=== PATIENT | female | born 1995 | race Caucasian/White ===

== ENCOUNTER 2016-08-01 18:07 | Emergency (ER) | payer MEDICAID ==
[2016-08-01] MEDS ORDERED: Ondansetron 4 MG/2 ML SDV IVPUSH ONE (18:45)
[2016-08-01] MEDS ORDERED: Ketorolac 30 MG/ML SDV IVPUSH ONE ×2 (18:49→21:06)
[2016-08-01] MEDS ORDERED: Sodium Chloride 0.9% 1,000 ML IV ONE (18:52)
--- NOTE | 2016-08-01 18:58 | EDM.PDOC ---
<Mandi Zarate - Last Filed: 08/01/16 19:16> ED HPI GI/ABDOMINAL - General Chief Complaint: Abdominal Pain Stated Complaint: BAD GALLBLADDER/TROUBLE BREATHING Time Seen by Provider: 08/01/16 18:35 Source of Information: Reports: Patient History Limitations: Reports: No limitations - History of Present Illness INITIAL COMMENTS - FREE TEXT/NARRATIVE: Patient is a 21 year old female that presents to ED with complaints of right mid back pain that radiates to the front RUQ that started 3 days ago. Voices pain as 10/10 and describes it as a constant throbbing pain. Patient states "i have had this before its my gallbladder, it has sludge in it". Voices heartburn and nausea with meals and one episode of emesis this morning when she ate some eggs. Voices chills denies fever. Patient tried OTC antacids without relief of heartburn symptoms. Symptom Onset Date: 07/29/16 Timing/Duration: Reports: Day(s): (3 days) Location: flank (right flank pain) Quality: Reports: throbbing (constant throbbing) Severity: severe (10/10) Worsens with: Reports: lying down, sitting up - Related Data Allergies/ADRs: Allergies Allergy/AdvReac Type Severity Reaction Status Date / Time morphine Allergy Itching Verified 08/01/16 18:18 Home Meds: Home Meds medroxyPROGESTERone Acetate [Depo-Provera] 150 mg IM ASDIRECTED 09/25/15 [ History] Past Medical History - Past Health History Medical/Surgical History: Denies Medical/Surgical History HEENT History: Reports: None Cardiovascular History: Reports: Blood clots/VTE/DVT Respiratory History: Reports: None Gastrointestinal History: Reports: Cholelithiasis Other Gastrointestinal History: gall bladder problem Genitourinary History: Reports: None 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: Musculoskeletal History: Reports: None, Fracture Other Musculoskeletal History: Fracture in R humerus on 09/25/15 with ORIF Neurological History: Reports: None Psychiatric History: Reports: Anxiety Endocrine/Metabolic History: Reports: Diabetes, type II Other Endocrine/Metabolic History: borderline not taking any meds for it Hematologic History: Reports: None Immunologic History: Reports: None Oncologic (Cancer) History: Reports: None Dermatologic History: Reports: None - Infectious Disease History Infectious Disease History: Reports: None - Past Surgical History Head Surgeries/Procedures: Reports: None Cardiovascular Surgical History: Reports: None Respiratory Surgical History: Reports: None GI Surgical History: Reports: None Female Surgical History: Reports: None Musculoskeletal Surgical History: Reports: None Dermatological Surgical History: Reports: None Social & Family History - Family History Family Medical History: Noncontributory - Tobacco Use Smoking Status *Q: Never Smoker Second Hand Smoke Exposure: No - Caffeine Use Caffeine Use: Reports: None - Alcohol Use Days Per Week of Alcohol Use: 0 - Recreational Drug Use Recreational Drug Use: No ED ROS GENERAL - Review of Systems Review Of Systems: ROS reveals no pertinent complaints other than HPI. ED EXAM, GI/ABD - Physical Exam Exam: See Below Exam Limited By: No limitations General Appearance: alert, WD/WN, no apparent distress Ears: normal external exam Nose: normal inspection Throat/Mouth: Normal inspection Head: atraumatic, normocephalic Neck: normal inspection Respiratory/Chest: no respiratory distress, lungs clear, normal breath sounds, no accessory muscle use, chest non-tender Cardiovascular: regular rate, rhythm GI/Abdominal: normal bowel sounds, soft, non tender (Female) Exam: Deferred Rectal (Female) Exam: Deferred Back Exam: normal inspection Extremities: normal inspection Neurological: alert, oriented Psychiatric: normal affect, normal mood Skin Exam: Warm, Dry, Intact, Normal color, No rash Lymphatic: no adenopathy Course - Vital Signs Last Recorded V/S: Last Vital Signs Temp 36.4 C 08/01/16 18:18 Pulse 63 08/01/16 18:18 Resp 18 08/01/16 18:18 BP 150/66 H 08/01/16 18:18 Pulse Ox 99 08/01/16 18:18 - Orders/Labs/Meds Orders: Active Orders 24 hr Category Date Time Status UA W/MICROSCOPIC [URIN] Stat Lab 08/01/16 19:55 Received Labs: Laboratory Tests 08/01/16 08/01/16 08/01/16 Range/Units 19:14 19:14 19:55 WBC 7.98 (4.0-11.0) K/uL RBC 4.68 (4.30-5.90) M/uL Hgb 12.3 (12.0-16.0) g/dL Hct 39.0 (36.0-46.0) % MCV 83.3 (80.0-98.0) fL MCH 26.3 L (27.0-32.0) pg MCHC 31.5 (31.0-37.0) g/dL RDW Std Deviation 43.6 (28.0-62.0) fl RDW Coeff of Jayy 15 (11.0-15.0) % Plt Count 277 (150-400) K/uL MPV 9.60 (7.40-12.00) fL Neut % (Auto) 71.9 (48.0-80.0) % Lymph % (Auto) 19.4 (16.0-40.0) % [place] % (Auto) 7.5 (0.0-15.0) % Eos % (Auto) 0.8 (0.0-7.0) % Baso % (Auto) 0.4 (0.0-1.5) % Neut # 5.7 (1.4-5.7) K/uL Lymph # 1.6 (0.6-2.4) K/uL [place] # 0.6 (0.0-0.8) K/uL Eos # 0.1 (0.0-0.7) K/uL Baso # 0.0 (0.0-0.1) K/uL Nucleated RBC % 0.0 /100WBC Nucleated RBCs # 0 K/uL Sodium 141 (136-146) mmol/L Potassium 5.1 (3.5-5.1) mmol/L Chloride 110 (98-110) mmol/L Carbon Dioxide 22 (21-31) mmol/L BUN 11 (6.0-23.0) mg/dL Creatinine 0.8 (0.6-1.5) mg/dL Est Cr Clr Drug Dosing 105.01 mL/min Estimated GFR (MDRD) > 60.0 ml/min Glucose 109 (60-110) mg/dL Calcium 9.4 (8.8-10.8) mg/dL Total Bilirubin 0.4 (0.1-1.5) mg/dL AST 60 H (5-40) IU/L ALT 40 (8-54) IU/L Alkaline Phosphatase 101 (40-150) Total Protein 7.9 (6.0-8.0) g/dL Albumin 3.9 (3.5-5.0) g/dL Globulin 4.0 H (2.0-3.5) g/dL Albumin/Globulin Ratio 1.0 L (1.3-2.8) Amylase 37 (10-90) U/L Lipase 26 (7-80) U/L Urine HCG, Qual NEGATIVE (NEGATIVE) Meds: Medications Discontinued Medications Generic Name Dose Route Start Last Admin Trade Name Freq PRN Reason Stop Dose Admin Sodium Chloride 1,000 mls @ 999 mls/hr 08/01/16 18:52 08/01/16 19:03 Normal Saline IV 08/01/16 19:52 999 mls/hr .Bolus ONE Administration Ketorolac Tromethamine 30 mg 08/01/16 18:49 08/01/16 19:04 Toradol IVPUSH 08/01/16 18:50 30 mg ONETIME ONE Administration Ondansetron HCl 4 mg 08/01/16 18:45 08/01/16 19:04 Zofran IVPUSH 08/01/16 18:46 4 mg ONETIME ONE Administration Departure - Departure Disposition: Home, Self-Care 01 Clinical Impression: Abdominal pain, Biliary colic Cholelithiasis Qualifiers: Cholelithiasis location: gallbladder Cholecystitis presence: without cholecystitis Biliary obstruction: without biliary obstruction Qualified Code(s) : K80.20 - Calculus of gallbladder without cholecystitis without obstruction Forms: ED Department Discharge Additional Instructions: The following information is given to patients seen in the emergency department who are being discharged to home. This information is to outline your options for follow-up care. We provide all patients seen in our emergency department with a follow-up referral. The need for follow-up, as well as the timing and circumstances, are variable depending upon the specifics of your emergency department visit. If you don't have a primary care physician on staff, we will provide you with a referral. We always advise you to contact your personal physician following an emergency department visit to inform them of the circumstance of the visit and for follow-up with them and/or the need for any referrals to a consulting specialist. The emergency department will also refer you to a specialist when appropriate. This referral assures that you have the opportunity for followup care with a specialist. All of these measure are taken in an effort to provide you with optimal care, which includes your followup. Under all circumstances we always encourage you to contact your private physician who remains a resource for coordinating your care. When calling for followup care, please make the office aware that this follow-up is from your recent emergency room visit. If for any reason you are refused follow-up, please contact the [facility] emergency department at and asked to speak to the emergency department charge nurse. [facility] - General Surgery Professional Building [address] [place] [address], [address] [place] [address] Zofran as prescribed followup Gen. surgery/private medical doctor 24-48 hours as discussed return as needed as discussed diet as discussed <Bola Vizcarra - Last Filed: 08/01/16 20:38> Course - Vital Signs Text/Narrative:: Patient with resolution of her nausea and vomiting he became markedly improved lengthy discussion regarding followup with general surgery she states prior appointments have been rescheduled for her general surgeon she does have scheduled plan with Dr. Blevins Departure - Departure Time of Disposition: 20:37 Condition: good
[2016-08-01 19:44] LABS: CHLORIDE,CL 110 mmol/L (98-110); SODIUM,NA 141 mmol/L (136-146)
[2016-08-01 21:31] VITALS: BP 130/70
== END 2016-08-01 21:25 | disposition home or self-care (01) ==
LOC: MW.ED 18:07
DX: K80.50 Calculus of bile duct without cholangitis or cholecystitis without obstruction (principal); E11.9 Type 2 diabetes mellitus without complications; Z88.5 Allergy status to narcotic agent; Z86.718 Personal history of other venous thrombosis and embolism
CPT/HCPCS: 36415; 80053; 81001; 81025; 82150; 83690; 85025; 96361; 96374; 96375; 96376; 99284; J1885; J2405; J7040

== ENCOUNTER 2016-09-11 06:31 | Day surgery (SDC) | payer SELFPAY ==
[~2016-09-11 06:31] MED LIST: Lactated Ringers 1,000 ML IV SCH; cefOXitin 2 GM in Premix Bag 1 BAG IV ONE
[2016-09-11] MEDS ORDERED: Midazolam 1 MG/ML 2 ML SDV ONE (06:50)
[2016-09-11] MEDS ORDERED: fentaNYL 250 MCG/5 ML SDV ONE (06:50)
[2016-09-11] MEDS ORDERED: Propofol 200 MG/20 ML SDV ONE (06:50)
[2016-09-11] MEDS ORDERED: Rocuronium 10 MG/ML 10 ML Syringe ONE (06:52)
[2016-09-11] MEDS ORDERED: Dexamethasone 4 MG/ML 5 ML MDV ONE (06:52)
[2016-09-11] MEDS ORDERED: Ondansetron 4 MG/2 ML SDV ONE (06:52)
[2016-09-11] MEDS ORDERED: Succinylcholine/Normal Saline 200 MG/10 ML Syringe ONE (06:52)
[2016-09-11] MEDS ORDERED: Neostigmine Methylsulfate 1 MG/ML 5 ML Syringe ONE (07:10)
[2016-09-11] MEDS ORDERED: fentaNYL 100 MCG/2 ML SDV IVPUSH PRN (07:15)
[2016-09-11] MEDS ORDERED: Bupivacaine 0.5% 10 ML SDV ONE (07:24)
[2016-09-11] MEDS ORDERED: ceFAZolin 1 GM Vial ONE (07:24)
--- NOTE | 2016-09-11 07:31 | PCM.PREANE ---
Preanesthetic Assessment - Anesthesia/Transfusion/Family Hx Anesthesia History: Prior Anesthesia Without Reaction Transfusion History: No Prior Transfusion(s) Intubation History: Unknown - Review of Systems General: No Symptoms, Other (morbid obesity) Pulmonary: No Symptoms Cardiovascular: No Symptoms Gastrointestinal: Abdominal pain (RUQ - surgical zone), Other (GERD) Neurological: No Symptoms Other: Reports: Diabetes (diet controlled, fbs 107), Anxiety - Physical Assessment O2 Sat by Pulse Oximetry: 97 Respiratory Rate: 16 Vital Signs: Last Vital Signs Temp 97.7 F 09/11/16 06:55 Pulse 78 09/11/16 06:55 Resp 16 09/11/16 06:55 BP Pulse Ox 97 09/11/16 06:55 Height: 5 ft 6 in Weight: 320 lb ASA Class: 3 Mental Status: Alert & Oriented x3 Airway Class: Mallampati = 3 Dentition: Reports: Normal Dentition (plaque on frontal teeth) Thyro-Mental Finger Breadths: 3 Mouth Opening Finger Breadths: 3 ROM/Head Extension: Full Lungs: Clear to auscultation, Normal respiratory effort Cardiovascular: Regular Rate, Regular Rhythm, No Murmurs - Lab Values: Laboratory Last Values Urine HCG, Qual NEGATIVE (NEGATIVE) 09/11/16 06:32 - Allergies Allergies/Adverse Reactions: Allergies Allergy/AdvReac Type Severity Reaction Status Date / Time morphine Allergy Itching Verified 08/01/16 18:18 - Blood Blood Available: No Product(s) Available: None - Anesthesia Plan Pre-Op Medication Ordered: None - Acknowledgements Anesthesia Type Planned: General Anesthesia (OETT) Pt an Appropriate Candidate for the Planned Anesthesia: Yes Alternatives and Risks of Anesthesia Discussed w Pt/Guardian: Yes Pt/Guardian Understands and Agrees with Anesthesia Plan: Yes PreAnesthesia Questionnaire - Past Health History Medical/Surgical History: Denies Medical/Surgical History HEENT History: Reports: None Cardiovascular History: Reports: Blood clots/VTE/DVT Other Cardiovascular History: DVT x2 to left leg 2 yrs ago following vaginal delivery Respiratory History: Reports: None Gastrointestinal History: Reports: Cholelithiasis, GERD Genitourinary History: Reports: None 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 History: Reports: Fracture Other Musculoskeletal History: Fracture in R humerus on 09/25/15 with ORIF Neurological History: Reports: None Psychiatric History: Reports: Anxiety Endocrine/Metabolic History: Reports: Diabetes, type II, Obesity/BMI 30+ Other Endocrine/Metabolic History: borderline not taking any meds, diet controlled Hematologic History: Reports: None Immunologic History: Reports: None Oncologic (Cancer) History: Reports: None Dermatologic History: Reports: None - Infectious Disease History Infectious Disease History: Reports: None - Past Surgical History Head Surgeries/Procedures: Reports: None Cardiovascular Surgical History: Reports: None Respiratory Surgical History: Reports: None GI Surgical History: Reports: None Female Surgical History: Reports: None Musculoskeletal Surgical History: Reports: ORIF Dermatological Surgical History: Reports: None - SUBSTANCE USE Smoking Status *Q: Never Smoker Second Hand Smoke Exposure: No Days Per Week of Alcohol Use: 0 Recreational Drug Use History: No - HOME MEDS Home Medications: Home Meds medroxyPROGESTERone Acetate [Depo-Provera] 150 mg IM ASDIRECTED 09/25/15 [ History] Acetaminophen [Tylenol Extra Strength] 2 tab PO ASDIRECTED PRN 09/09/16 [History ] - CURRENT (IN HOUSE) MEDS Current Meds: Current Medications Fentanyl (Sublimaze) 50 mcg IVPUSH Q5M PRN PRN Reason: Pain (moderate 4-6) Stop: 09/11/16 13:00 Lactated Ringer's (Ringers, Lactated) 1,000 mls @ 125 mls/hr IV ASDIRECTED CHE Discontinued Medications Dexamethasone (Dexamethasone) Confirm Administered Dose 20 mg .ROUTE .STK-MED ONE Stop: 09/11/16 06:53 Fentanyl (Sublimaze) Confirm Administered Dose 250 mcg .ROUTE .STK-MED ONE Stop: 09/11/16 06:51 Glycopyrrolate () Confirm Administered Dose 1 mg .ROUTE .STK-MED ONE Stop: 09/11/16 07:11 Cefoxitin Sodium 2 gm/ Premix 50 mls @ 100 mls/hr IV ONETIME ONE Stop: 09/11/16 06:29 Cefoxitin Sodium (Mefoxin In Dextrose,Iso-Osm 2 Gm/50 Ml) Confirm Administered Dose 50 mls @ as directed .ROUTE .STK-MED ONE Stop: 09/11/16 07:15 Lidocaine HCl (Xylocaine-Mpf 1%) Confirm Administered Dose 5 ml .ROUTE .STK-MED ONE Stop: 09/11/16 06:53 Midazolam HCl (Versed 1 Mg/Ml) Confirm Administered Dose 2 mg .ROUTE .STK-MED ONE Stop: 09/11/16 06:51 Neostigmine Methylsulfate (Neostigmine) Confirm Administered Dose 5 mg .ROUTE .STK-MED ONE Stop: 09/11/16 07:11 Ondansetron HCl (Zofran) Confirm Administered Dose 4 mg .ROUTE .STK-MED ONE Stop: 09/11/16 06:53 Propofol (Diprivan 20 Ml) Confirm Administered Dose 200 mg .ROUTE .STK-MED ONE Stop: 09/11/16 06:51 Rocuronium [place] (Zemuron) Confirm Administered Dose 100 mg .ROUTE .STK-MED ONE Stop: 09/11/16 06:53 Succinylcholine Chloride (Succinylcholine In Ns Pf) Confirm Administered Dose 200 mg .ROUTE .STK-MED ONE Stop: 09/11/16 06:53
[2016-09-11] MEDS ORDERED: Mineral Oil/Petrolatum Ophth Oint 3.5 GM Tube ONE (07:32)
[2016-09-11] MEDS ORDERED: Scopolamine 1.5 MG Transdermal Patch TRDERM PRN (07:35)
[2016-09-11] MEDS ORDERED: HYDROmorphone 2 MG/ML Syringe ONE (09:44)
[2016-09-11] MEDS ORDERED: Ketorolac 30 MG/ML SDV ONE (09:47)
[2016-09-11] MEDS ORDERED: Acetaminophen/HYDROcodone 325-5 MG Tab PO PRN (10:03)
[2016-09-11] MEDS ORDERED: Ondansetron 4 MG/2 ML SDV IVPUSH PRN (10:03)
[2016-09-11] MEDS ORDERED: HYDROmorphone 2 MG/ML Syringe IVPUSH PRN (10:04)
--- NOTE | 2016-09-11 10:08 | PCM.OPNOTE ---
- General Post-Op/Procedure Note Date of Surgery/Procedure: 09/11/16 Operative Procedure(s): Laparoscopic cholecystectomy with removal multiple cystic duct stones Pre Op Diagnosis: Cholelithiasis Post-Op Diagnosis: Cholelithiasis with cholecystitis. Multiple cystic duct stones. Anesthesia Technique: General ET tube (ASA III) Primary Surgeon: Elliot Blevins Fluid Replacement, Intraop: 1,200 Output, Urine Amount: 100 EBL in mLs: 30 Condition: Good Free Text/Narrative:: Dictation [id number]
[2016-09-11] MEDS ORDERED: Lactated Ringers 1,000 ML IV SCH (10:15)
--- NOTE | 2016-09-11 10:56 | PCM.POSTAN ---
POST ANESTHESIA ASSESSMENT - MENTAL STATUS Mental Status: alert, oriented - RESPIRATORY Respiratory Status: respiratory rate WNL, airway patent - CARDIOVASCULAR CV Status: pulse rate WNL, blood pressure stable - GASTROINTESTINAL GI Status: no symptoms - POST OP HYDRATION Hydration Status: adequate & stable
--- NOTE | 2016-09-11 12:02 | OR ---
SURGEON: lEliot Blevins M.D. DATE OF PROCEDURE: 09/11/2016 OPERATION PERFORMED: Laparoscopic cholecystectomy. ANESTHESIA: General endotracheal. ASA CLASSIFICATION: III. PREOPERATIVE DIAGNOSIS: Symptomatic cholelithiasis. POSTOPERATIVE DIAGNOSIS: Cholelithiasis with multiple cystic duct stones. ESTIMATED BLOOD LOSS: 30 mL. INTRAOPERATIVE FLUID REPLACEMENT: 1200 mL of crystalloid. INTRAOPERATIVE URINE OUTPUT: 100 mL. DESCRIPTION OF PROCEDURE: The patient was taken to the operating room and placed on the operating table in the supine position. Thigh-high TEDs have been placed. However, these were all down and acted more as the tourniquets so they were removed. Sequential compression boots were used for DVT prophylaxis. Following satisfactory attainment of general endotracheal anesthesia, a Glass catheter was placed in the patient's urinary bladder. The abdomen was prepped with DuraPrep solution and sterile drapes were applied. The skin just below the umbilicus was infiltrated with 0.5% Marcaine solution. The skin incision was made and hemostasis was obtained with the use of electrocautery. The bariatric Veress needle was introduced into the peritoneal cavity. Saline drop test was positive. Carbon dioxide pneumoperitoneum was established with the relief set at 15 cm of water. Once a satisfactory pneumoperitoneum was established, the patient was positioned with her feet down and rolled left and a 5 mm camera and port were placed through the infraumbilical incision. Under camera vision, 12 mm subxiphoid, 5 mm midclavicular, and 5 mm anterior axillary ports were placed. Each incision was preemptively infiltrated with 0.5% Marcaine solution. The gallbladder was grasped and adhesions were taken down. The cholecystohepatic triangle was dissected free obtaining a good critical view of the cystic duct, which demonstrated multiple stones that could be seen and palpated with the [place] dissector. Attempt was made to milk the stones back, however, we were not able to do that. Therefore small incision in the cystic duct was made just at the base of the gallbladder and the stones were removed. They were milked backwards with care taken to avoid injury to the common duct, cystic duct junction. Once all the stones were removed the cystic duct was still quite thick and required multiple extra clips to satisfactorily transect and ligate this. Unfortunately, some stones were spilled from the gallbladder and these were able to be retrieved. The cystic artery was then identified and hemo- clipped as well before division with the laparoscopic Metzenbaum scissor. The gallbladder was then dissected away from its bed using electrocautery. Small bleeding sites were electrocoagulated. No bile was noted coming from the bed of the gallbladder. Once gallbladder was amputated, this was placed in an Endopouch. The right upper quadrant was irrigated with several 100 mL of 1% Ancef solution. All fluid was aspirated. Avitene and Surgicel were placed into the bed of the gallbladder. The right hemidiaphragm was then irrigated with dilute Marcaine solution. That fluid was left in place. The 12 mm trocar and Endopouch containing gallbladder were removed through the subxiphoid incision. Under camera vision, the 5 mm midclavicular, and anterior axillary ports were removed and finally the infraumbilical camera and port were removed. The wounds were inspected for hemostasis. No other bleeding was noted. The patient was now placed back in the neutral position. The subxiphoid and infraumbilical incisions were closed in 2 layers approximating the subcutaneous tissue with 3-0 Polysorb and the skin with subcuticular 4-0 Monocryl. The midclavicular and anterior axillary incisions were closed with subcuticular 4-0 Monocryl. All incisions were Steri-Stripped and dressed with sterile Tegaderm pads. The patient tolerated the procedure well. Glass catheter was removed prior to emergence from anesthesia. Following emergence from anesthesia and extubation, the patient was taken to recovery room in satisfactory condition. ALEXA GUERRERO /[id number] SWATI
--- NOTE | 2016-09-11 12:42 | PCM48HPAN ---
Post Anesthesia Note - EVALUATION WITHIN 48HRS OF ANESTHETIC Vital Signs in Normal Range: Yes Patient Participated in Evaluation: Yes Respiratory Function Stable: Yes Airway Patent: Yes Cardiovascular Function Stable: Yes Hydration Status Stable: Yes Pain Control Satisfactory: Yes Nausea and Vomiting Control Satisfactory: Yes Mental Status Recovered: Yes
[2016-09-11 14:11] VITALS: BP 114/59
== END 2016-09-11 13:00 | disposition home or self-care (01) ==
LOC: MW.SDS 06:31
PROVIDERS: ATTEND Surgery
PROC: 0FT44ZZ Resection of Gallbladder, Percutaneous Endoscopic Approach (ICD-10-PCS; principal; 2016-09-11)
DX: K80.10 Calculus of gallbladder with chronic cholecystitis without obstruction (principal); R73.03 Prediabetes; E66.01 Morbid (severe) obesity due to excess calories; Z68.43 Body mass index [BMI] 50.0-59.9, adult; Z86.718 Personal history of other venous thrombosis and embolism
CPT/HCPCS: 47562; 81025; A9270; J0690; J1100; J1170; J1885; J2250; J2405; J3010; J7120; 00790; 88304; J2704

== ENCOUNTER 2016-09-17 14:49 | Emergency (ER) | payer SELFPAY ==
--- NOTE | 2016-09-17 16:00 | EDM.PDOC ---
ED HPI Trauma - General Chief Complaint: Lower Extremity Injury/Pain Stated Complaint: POSSIBLE BLOOD CLOT IN LT LEG Time Seen by Provider: 09/17/16 15:20 Source: Reports: Patient History Limitations: Reports: No limitations - History of Present Illness INITIAL COMMENTS - FREE TEXT/NARRATIVE: History of present illness: [21-year-old female presenting with acute onset of left leg pain patient demonstrates a read From her left groin down across her thigh down to her knee. Patient indicates she does have a positive history of DVTs and she subsequently had a gallbladder surgery approximately a week ago. She indicates it is painful and hot and the redness has gotten darker in the last day and a half.] Review of systems: As per history of present illness and below otherwise all systems reviewed and negative. Past medical history: As per history of present illness and as reviewed below otherwise noncontributory. Surgical history: As per history of present illness and as reviewed below otherwise noncontributory. Social history: No reported history of drug or alcohol abuse. Family history: As per history of present illness and as reviewed below otherwise noncontributory. Physical exam: HEENT: Atraumatic, normocephalic, pupils reactive, negative for conjunctival pallor or scleral icterus, mucous membranes moist, throat clear, neck supple, nontender, trachea midline. Lungs: Clear to auscultation, breath sounds equal bilaterally, chest nontender. Heart: S1S2, regular, negative for clicks, rubs, or JVD. Abdomen: Soft, nondistended, nontender. Negative for masses or hepatosplenomegaly. Negative for costovertebral tenderness. Pelvis: Stable nontender. Genitourinary: Deferred. Rectal: Deferred. Extremities: Atraumatic, negative for cords or calf pain. Neurovascular unremarkable. Neuro: Awake, alert, oriented. Cranial nerves II through XII unremarkable. Cerebellum unremarkable. Motor and sensory unremarkable throughout. Exam nonfocal. Skin: 2 cm midline radiating from left femoral region down the top of the patient's thigh going into her knee hardened area easily palpable. Venous Doppler negative UA positive DVT versus cellulitis Diagnostics: [Venous Doppler left lower extremity] Therapeutics: [] Impression: [UTI, cellulitis] Plan: [Antibiotics followup with PCP] Definitive disposition and diagnosis as appropriate pending reevaluation and review of above. Allergies/ADRs: Allergies morphine Allergy (Verified 09/17/16 15:40) Itching Home Medications: Ambulatory Orders medroxyPROGESTERone Acetate [Depo-Provera] 150 mg IM ASDIRECTED 09/25/15 [ Confirmed 09/17/16] Acetaminophen [Tylenol Extra Strength] 2 tab PO ASDIRECTED PRN 09/09/16 [ Confirmed 09/17/16] Nitrofurantoin Monohyd/M-Cryst [Macrobid 100 mg Capsule] 100 mg PO BID #20 capsule 09/17/16 Past Medical History - Past Health History Medical/Surgical History: Denies Medical/Surgical History HEENT History: Reports: None Cardiovascular History: Reports: Blood clots/VTE/DVT Other Cardiovascular History: DVT x2 to left leg 2 yrs ago following vaginal delivery Respiratory History: Reports: None Gastrointestinal History: Reports: Cholelithiasis, GERD Genitourinary History: Reports: None 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: Musculoskeletal History: Reports: Fracture Other Musculoskeletal History: Fracture in R humerus on 09/25/15 with ORIF Neurological History: Reports: None Psychiatric History: Reports: Anxiety Endocrine/Metabolic History: Reports: Diabetes, type II, Obesity/BMI 30+ Other Endocrine/Metabolic History: borderline not taking any meds, diet controlled Hematologic History: Reports: None Immunologic History: Reports: None Oncologic (Cancer) History: Reports: None Dermatologic History: Reports: None - Infectious Disease History Infectious Disease History: Reports: None - Past Surgical History Head Surgeries/Procedures: Reports: None Cardiovascular Surgical History: Reports: None Respiratory Surgical History: Reports: None GI Surgical History: Reports: None Female Surgical History: Reports: None Musculoskeletal Surgical History: Reports: ORIF Dermatological Surgical History: Reports: None Social & Family History - Family History Family Medical History: Noncontributory - Tobacco Use Smoking Status *Q: Never Smoker Second Hand Smoke Exposure: No - Caffeine Use Caffeine Use: Reports: None - Alcohol Use Days Per Week of Alcohol Use: 0 - Recreational Drug Use Recreational Drug Use: No Review of Systems - Review of Systems Review Of Systems: See Below (The history of present illness) Trauma Exam - Physical Exam Exam: See Below (See history of present illness) Course - Vital Signs Last Recorded V/S: Last Vital Signs Temp 36.5 C 09/17/16 15:38 Pulse 92 09/17/16 15:38 Resp 18 09/17/16 15:38 BP 123/79 09/17/16 15:38 Pulse Ox 98 09/17/16 15:38 - Orders/Labs/Meds Orders: Active Orders 24 hr Category Date Time Status Venous Doppler Lwr Ext Lt [US] Stat Exams 09/17/16 15:34 Taken Labs: Laboratory Tests 09/17/16 09/17/16 09/17/16 Range/Units 16:20 17:39 17:39 WBC 8.97 (4.0-11.0) K/uL RBC 4.52 (4.30-5.90) M/uL Hgb 11.7 L (12.0-16.0) g/dL Hct 37.9 (36.0-46.0) % MCV 83.8 (80.0-98.0) fL MCH 25.9 L (27.0-32.0) pg MCHC 30.9 L (31.0-37.0) g/dL RDW Std Deviation 44.5 (28.0-62.0) fl RDW Coeff of Jayy 15 (11.0-15.0) % Plt Count 260 (150-400) K/uL MPV 9.20 (7.40-12.00) fL Neut % (Auto) 71.4 (48.0-80.0) % Lymph % (Auto) 17.9 (16.0-40.0) % [place] % (Auto) 7.5 (0.0-15.0) % Eos % (Auto) 2.8 (0.0-7.0) % Baso % (Auto) 0.4 (0.0-1.5) % Neut # (Auto) 6.4 H (1.4-5.7) K/uL Lymph # (Auto) 1.6 (0.6-2.4) K/uL [place] # (Auto) 0.7 (0.0-0.8) K/uL Eos # (Auto) 0.3 (0.0-0.7) K/uL Baso # (Auto) 0.0 (0.0-0.1) K/uL Nucleated RBC % 0.0 /100WBC Nucleated RBCs # 0 K/uL Sodium 141 (136-146) mmol/L Potassium 4.2 (3.5-5.1) mmol/L Chloride 110 (98-110) mmol/L Carbon Dioxide 24 (21-31) mmol/L BUN 9 (6.0-23.0) mg/dL Creatinine 0.8 (0.6-1.5) mg/dL Est Cr Clr Drug Dosing 109.08 mL/min Estimated GFR (MDRD) > 60.0 ml/min Glucose 96 (60-110) mg/dL Calcium 9.0 (8.8-10.8) mg/dL Total Bilirubin 0.4 (0.1-1.5) mg/dL AST 12 (5-40) IU/L ALT 22 (8-54) IU/L Alkaline Phosphatase 84 (40-150) Total Protein 7.4 (6.0-8.0) g/dL Albumin 4.0 (3.5-5.0) g/dL Globulin 3.4 (2.0-3.5) g/dL Albumin/Globulin Ratio 1.2 L (1.3-2.8) Urine Color YELLOW Urine Appearance SLT CLOUDY Urine pH 5.5 (5.0-8.0) Ur Specific [place] 1.025 (1.001-1.035) Urine Protein NEGATIVE (NEGATIVE) mg/dL Urine Glucose (UA) NEGATIVE (NEGATIVE) mg/dL Urine Ketones NEGATIVE (NEGATIVE) mg/dL Urine Occult Blood LARGE H (NEGATIVE) Urine Nitrite NEGATIVE (NEGATIVE) Urine Bilirubin NEGATIVE (NEGATIVE) Urine Urobilinogen 0.2 (<2.0) EU/dL Ur Leukocyte Esterase TRACE (NEGATIVE) Urine RBC 60-65 (0-2/HPF) Urine WBC 3-5 (0-5/HPF) Ur Epithelial Cells FEW (NONE-FEW) Urine Bacteria FEW (NEGATIVE) Meds: Medications Discontinued Medications Generic Name Dose Route Start Last Admin Trade Name Freq PRN Reason Stop Dose Admin Sodium Chloride 1,000 mls @ 999 mls/hr 09/17/16 16:20 09/17/16 17:33 Normal Saline IV 09/17/16 17:20 Not Given STAT ONE Departure - Departure Time of Disposition: 18:21 Disposition: Home, Self-Care 01 Condition: good Clinical Impression: UTI (urinary tract infection), Cellulitis Prescriptions: Nitrofurantoin Monohyd/M-Cryst [Macrobid 100 mg Capsule] 100 mg PO BID #20 capsule Forms: ED Department Discharge Additional Instructions: The following information is given to patients seen in the emergency department who are being discharged to home. This information is to outline your options for follow-up care. We provide all patients seen in our emergency department with a follow-up referral. The need for follow-up, as well as the timing and circumstances, are variable depending upon the specifics of your emergency department visit. If you don't have a primary care physician on staff, we will provide you with a referral. We always advise you to contact your personal physician following an emergency department visit to inform them of the circumstance of the visit and for follow-up with them and/or the need for any referrals to a consulting specialist. The emergency department will also refer you to a specialist when appropriate. This referral assures that you have the opportunity for follow-up care with a specialist. All of these measure are taken in an effort to provide you with optimal care, which includes your follow-up. Under all circumstances we always encourage you to contact your private physician who remains a resource for coordinating your care. When calling for follow-up care, please make the office aware that this follow-up is from your recent emergency room visit. If for any reason you are refused follow-up, please contact the [facility] Emergency Department at and asked to speak to the emergency department charge nurse. Take medication as directed Followup with PCP 1-2 days Return to ED as needed as discussed - My Orders Last 24 Hours: My Active Orders 09/17/16 15:34 Venous Doppler Lwr Ext Lt [US] Stat - Assessment/Plan Last 24 Hours: My Active Orders 09/17/16 15:34 Venous Doppler Lwr Ext Lt [US] Stat
[2016-09-17] MEDS ORDERED: Sodium Chloride 0.9% 1,000 ML IV ONE (16:20)
[2016-09-17 18:05] LABS: CHLORIDE,CL 110 mmol/L (98-110); SODIUM,NA 141 mmol/L (136-146)
[2016-09-17 18:46] VITALS: BP 132/75
--- NOTE | 2016-09-18 10:32 | US ---
EXAM DATE: 09/17/16 PATIENT'S AGE: 21 Patient: JANEE BLACKWELL Facility: [place], [place] Site . Site : 1995 Study: US Extremity [id number]/20/2017 5:11:17 PM Ordering Physician: Doctor Tamayo Final Report: INDICATION: pain and redness in left leg INDICATION: Left lower extremity pain and swelling TECHNIQUE: Ultrasound venous duplex lower left extremity. Compression venous exam was performed using schmid-scale, color Doppler, and spectral Doppler analysis. COMPARISON: FINDINGS: Sonographic imaging demonstrates the left common femoral, deep femoral, superficial femoral, popliteal, posterior tibial and greater saphenous and the contralateral right common femoral veins to be fully compressible with normal color Doppler blood flow. IMPRESSION: Normal left lower extremity venous ultrasound, no sign of deep venous thrombosis. Dictated by Ned Rashid MD @ 09/17/2016 5:31:41 PM Dictated by: Ned Rashid MD @ 09/17/2016 17:31:52 (Electronic Signature) Report Signed by Proxy and Original Signed Document filed in the Medical Record. MTDD
== END 2016-09-17 18:43 | disposition home or self-care (01) ==
LOC: MW.ED 14:49
DX: L03.116 Cellulitis of left lower limb (principal); N39.0 Urinary tract infection, site not specified; K21.9 Gastro-esophageal reflux disease without esophagitis; F41.9 Anxiety disorder, unspecified; E11.9 Type 2 diabetes mellitus without complications; E66.9 Obesity, unspecified; Z68.30 Body mass index [BMI] 30.0-30.9, adult; Z86.718 Personal history of other venous thrombosis and embolism; Z98.890 Other specified postprocedural states; Z88.5 Allergy status to narcotic agent
CPT/HCPCS: 80053; 81001; 85025; 93971-26-LT; 93971-LT; 99283; 99284-25

== ENCOUNTER 2016-11-23 23:59 | Emergency (ER) | payer SELFPAY ==
--- NOTE | 2016-11-24 00:12 | EDM.PDOC ---
ED HPI GENERAL MEDICAL PROBLEM - General Chief Complaint: Eye Problems Stated Complaint: PT HAS SWOLLEN LT EYE Time Seen by Provider: 11/24/16 00:08 - History of Present Illness INITIAL COMMENTS - FREE TEXT/NARRATIVE: HISTORY AND PHYSICAL: History of present illness: Patient 21-year-old female presents for a concern of a stye she states she had swelling of her lower eyelid and discomfort 2 days Review of systems: As per history of present illness and below otherwise all systems reviewed and negative. Past medical history: As per history of present illness and as reviewed below otherwise noncontributory. Surgical history: As per history of present illness and as reviewed below otherwise noncontributory. Social history: No reported history of drug or alcohol abuse. Family history: As per history of present illness and as reviewed below otherwise noncontributory. Physical exam: HEENT: Atraumatic, normocephalic, pupils reactive, negative for conjunctival pallor or scleral icterus, mucous membranes moist, throat clear, neck supple, nontender, trachea midline. Patient is known to have a hordeolum medial aspect of her left lower lid Lungs: Clear to auscultation, breath sounds equal bilaterally, chest nontender. Heart: S1S2, regular, negative for clicks, rubs, or JVD. Abdomen: Soft, nondistended, nontender. Negative for masses or hepatosplenomegaly. Negative for costovertebral tenderness. Pelvis: Stable nontender. Genitourinary: Deferred. Rectal: Deferred. Extremities: Atraumatic, negative for cords or calf pain. Neurovascular unremarkable. Neuro: Awake, alert, oriented. Cranial nerves II through XII unremarkable. Cerebellum unremarkable. Motor and sensory unremarkable throughout. Exam nonfocal. Diagnostics: None Therapeutics: None Impression: 1 hordeolum Definitive disposition and diagnosis as appropriate pending reevaluation and review of above. left eyelid Pain Score (Numeric/FACES): 3 - Related Data Allergies Allergy/AdvReac Type Severity Reaction Status Date / Time morphine Allergy Itching Verified 11/24/16 00:07 Home Meds: Home Meds medroxyPROGESTERone Acetate [Depo-Provera] 150 mg IM ASDIRECTED 09/25/15 [ History] Acetaminophen [Tylenol Extra Strength] 2 tab PO ASDIRECTED PRN 09/09/16 [History ] Cephalexin [Keflex] 500 mg PO QID #40 capsule 09/17/16 [Rx] Past Medical History - Past Health History Medical/Surgical History: Denies Medical/Surgical History HEENT History: Reports: None Cardiovascular History: Reports: Blood Clots/VTE/DVT Other Cardiovascular History: DVT x2 to left leg 2 yrs ago following vaginal delivery Respiratory History: Reports: None Gastrointestinal History: Reports: Cholelithiasis, GERD Genitourinary History: Reports: None 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: Musculoskeletal History: Reports: Fracture Other Musculoskeletal History: Fracture in R humerus on 09/25/15 with ORIF Neurological History: Reports: None Psychiatric History: Reports: Anxiety Endocrine/Metabolic History: Reports: Diabetes, Type II, Obesity/BMI 30+ Other Endocrine/Metabolic History: borderline not taking any meds, diet controlled Hematologic History: Reports: None Immunologic History: Reports: None Oncologic (Cancer) History: Reports: None Dermatologic History: Reports: None - Infectious Disease History Infectious Disease History: Reports: None - Past Surgical History Head Surgeries/Procedures: Reports: None Cardiovascular Surgical History: Reports: None Respiratory Surgical History: Reports: None GI Surgical History: Reports: None Female Surgical History: Reports: None Musculoskeletal Surgical History: Reports: ORIF Dermatological Surgical History: Reports: None Social & Family History - Family History Family Medical History: Noncontributory - Tobacco Use Smoking Status *Q: Never Smoker Second Hand Smoke Exposure: No - Caffeine Use Caffeine Use: Reports: None - Alcohol Use Days Per Week of Alcohol Use: 0 - Recreational Drug Use Recreational Drug Use: No ED ROS GENERAL - Review of Systems Review Of Systems: ROS reveals no pertinent complaints other than HPI. ED EXAM GENERAL W FULL EYE - Physical Exam Exam: See Below (See dictation) Course - Vital Signs Last Recorded V/S: Last Vital Signs Temp 36.4 C 11/24/16 00:07 Pulse 87 11/24/16 00:07 Resp 20 11/24/16 00:07 BP 129/78 11/24/16 00:07 Pulse Ox 99 11/24/16 00:07 Departure - Departure Time of Disposition: 00:11 Disposition: Home, Self-Care 01 Condition: Good Clinical Impression: Hordeolum externum (stye) - Discharge Information Forms: ED Department Discharge Additional Instructions: The following information is given to patients seen in the emergency department who are being discharged to home. This information is to outline your options for follow-up care. We provide all patients seen in our emergency department with a follow-up referral. The need for follow-up, as well as the timing and circumstances, are variable depending upon the specifics of your emergency department visit. If you don't have a primary care physician on staff, we will provide you with a referral. We always advise you to contact your personal physician following an emergency department visit to inform them of the circumstance of the visit and for follow-up with them and/or the need for any referrals to a consulting specialist. The emergency department will also refer you to a specialist when appropriate. This referral assures that you have the opportunity for followup care with a specialist. All of these measure are taken in an effort to provide you with optimal care, which includes your followup. Under all circumstances we always encourage you to contact your private physician who remains a resource for coordinating your care. When calling for followup care, please make the office aware that this follow-up is from your recent emergency room visit. If for any reason you are refused follow-up, please contact the [facility] emergency department at and asked to speak to the emergency department charge nurse. Erythromycin as prescribed warm compresses follow-up primary medical doctor 1-2 days return as needed as discussed]
[2016-11-24 06:56] VITALS: BP 125/72
== END 2016-11-24 00:26 | disposition home or self-care (01) ==
LOC: MW.ED 23:59
DX: H00.015 Hordeolum externum left lower eyelid (principal); K21.9 Gastro-esophageal reflux disease without esophagitis; E11.9 Type 2 diabetes mellitus without complications; E66.9 Obesity, unspecified; Z88.5 Allergy status to narcotic agent; Z79.899 Other long term (current) drug therapy
CPT/HCPCS: 99282; 99283

== ENCOUNTER 2017-05-15 23:34 | Emergency (ER) | payer SELFPAY ==
[2017-05-15] MEDS ORDERED: Ketorolac 60 MG/2 ML SDV IM ONE (23:50)
--- NOTE | 2017-05-15 23:53 | EDM.PDOC ---
ED HPI GENERAL MEDICAL PROBLEM - General Chief Complaint: Lower Extremity Injury/Pain Stated Complaint: LEFT FOOT PAIN Time Seen by Provider: 05/15/17 23:38 - History of Present Illness INITIAL COMMENTS - FREE TEXT/NARRATIVE: HISTORY AND PHYSICAL: History of present illness: The patient is a 21-year-old female who presents after twisting her left ankle while going down some stairs yesterday at a friend's home. She did fall to the ground but she did not hit her head pass out or black out and has no head neck or back pain and has no other extremity or body complaints. She's had persistent pain at her left ankle since that time been trying not to weight- bear ice and elevate but she has also been alternating with heat. She has used Tylenol only for pain and comes today for evaluation for persistent pain and swelling. She has no proximal leg knee thigh or hip pain and no distal foot heel pain and no neurosensory changes in her leg or foot. Patient says it was "bent to the side ". Patient denies and says she is on the Depo shot Review of systems: As per history of present illness and below otherwise all systems reviewed and negative. Past medical history: As per history of present illness and as reviewed below otherwise noncontributory. Surgical history: As per history of present illness and as reviewed below otherwise noncontributory. Social history: No reported history of drug or alcohol abuse. Family history: As per history of present illness and as reviewed below otherwise noncontributory. Physical exam: Gen.: Well-developed overweight female who is nontoxic and vital signs have been reviewed by me. HEENT: Atraumatic, normocephalic,negative for conjunctival pallor or scleral icterus, mucous membranes moist, throat clear, neck supple, nontender, trachea midline. Lungs: Clear to auscultation, breath sounds equal bilaterally, chest nontender. Heart: S1S2, regular rate and rhythm no overt murmurs Abdomen: Soft, nondistended, nontender. NABS Pelvis: Stable nontender. No lateral hip tenderness on the left Genitourinary: Deferred. Rectal: Deferred. Extremities: Atraumatic with full range of motion of all extremities with the exception of the left ankle. At the lateral left ankle there is diffuse soft tissue swelling without erythema warmth or ecchymosis. There is tenderness in this region but there is no proximal tib-fib tenderness no calf tenderness and no distal foot metatarsal heel toe tenderness or bony deformities. Neurovascular is intact in the left ankle and foot. The legs are, negative for cords or calf pain. Neurovascular unremarkable. Neuro: Awake, alert, oriented. Cranial nerves II through XII unremarkable. Cerebellum unremarkable. Motor and sensory unremarkable throughout. Exam nonfocal. Diagnostics: X-ray left ankle Therapeutics: Toradol ortho boot and crutches Impression: Left ankle sprain Definitive disposition and diagnosis as appropriate pending reevaluation and review of above. left foot Pain Score (Numeric/FACES): 10 - Related Data Allergies Allergy/AdvReac Type Severity Reaction Status Date / Time morphine Allergy Itching Verified 05/15/17 23:47 Home Meds: Home Meds medroxyPROGESTERone Acetate [Depo-Provera] 150 mg IM ASDIRECTED 09/25/15 [ History] Past Medical History - Past Health History Medical/Surgical History: Denies Medical/Surgical History HEENT History: Reports: None Cardiovascular History: Reports: Blood Clots/VTE/DVT Other Cardiovascular History: DVT x2 to left leg 2 yrs ago following vaginal delivery Respiratory History: Reports: None Gastrointestinal History: Reports: Cholelithiasis, GERD Genitourinary History: Reports: None MODULAR [employer] History: Reports: Musculoskeletal History: Reports: Fracture Other Musculoskeletal History: Fracture in R humerus on 09/25/15 with ORIF Neurological History: Reports: None Psychiatric History: Reports: Anxiety Endocrine/Metabolic History: Reports: Diabetes, Type II, Obesity/BMI 30+ Other Endocrine/Metabolic History: borderline not taking any meds, diet controlled Hematologic History: Reports: None Immunologic History: Reports: None Oncologic (Cancer) History: Reports: None Dermatologic History: Reports: None - Infectious Disease History Infectious Disease History: Reports: None - Past Surgical History Head Surgeries/Procedures: Reports: None Cardiovascular Surgical History: Reports: None Respiratory Surgical History: Reports: None GI Surgical History: Reports: None Female Surgical History: Reports: None Musculoskeletal Surgical History: Reports: ORIF Dermatological Surgical History: Reports: None Social & Family History - Family History Family Medical History: Noncontributory - Tobacco Use Smoking Status *Q: Never Smoker Second Hand Smoke Exposure: No - Caffeine Use Caffeine Use: Reports: None - Alcohol Use Days Per Week of Alcohol Use: 0 - Recreational Drug Use Recreational Drug Use: No Review of Systems - Review of Systems Review Of Systems: ROS reveals no pertinent complaints other than HPI. ED EXAM, GENERAL - Physical Exam Exam: See Below (See dictation) Course - Vital Signs Last Recorded V/S: Last Vital Signs Temp 36.3 C 05/15/17 23:48 Pulse 79 05/15/17 23:48 Resp 18 05/15/17 23:48 BP 124/59 L 05/15/17 23:48 Pulse Ox 98 05/15/17 23:48 - Orders/Labs/Meds Orders: Active Orders 24 hr Category Date Time Status Ankle Min 3V Lt [CR] Stat Exams 05/15/17 23:50 Taken DME for Discharge [COMM] Stat Oth 05/16/17 00:46 Ordered Meds: Medications Discontinued Medications Generic Name Dose Route Start Last Admin Trade Name Freq PRN Reason Stop Dose Admin Ketorolac Tromethamine 60 mg 05/15/17 23:50 05/16/17 00:14 Toradol IM 05/15/17 23:51 60 mg ONETIME ONE Administration Departure - Departure Time of Disposition: 00:52 Disposition: Home, Self-Care 01 Condition: Good Clinical Impression: Left ankle sprain Qualifiers: Encounter type: initial encounter Involved ligament of ankle: unspecified ligament Qualified Code(s): S93.402A - Sprain of unspecified ligament of left ankle, initial encounter - Discharge Information Referrals: Clovis Rodarte DO [Primary Care Provider] - Forms: ED Department Discharge Additional Instructions: The following information is given to patients seen in the emergency department who are being discharged to home. This information is to outline your options for follow-up care. We provide all patients seen in our emergency department with a follow-up referral. The need for follow-up, as well as the timing and circumstances, are variable depending upon the specifics of your emergency department visit. If you don't have a primary care physician on staff, we will provide you with a referral. We always advise you to contact your personal physician following an emergency department visit to inform them of the circumstance of the visit and for follow-up with them and/or the need for any referrals to a consulting specialist. The emergency department will also refer you to a specialist when appropriate. This referral assures that you have the opportunity for followup care with a specialist. All of these measure are taken in an effort to provide you with optimal care, which includes your followup. Under all circumstances we always encourage you to contact your private physician who remains a resource for coordinating your care. When calling for followup care, please make the office aware that this follow-up is from your recent emergency room visit. If for any reason you are refused follow-up, please contact the [facility] emergency department at and ask to speak to the emergency department charge nurse. [facility]--Orthopedic clinic Professional Building [address] [place] [id number] Please wear ortho boot and loosen at nighttime or remove at sleep times. Use crutches at all times and try not to weight-bear if possible. Ice and elevate as much as you can and use [id number] ibuprofen/Motrin for pain and inflammation. Use stronger pain medications, tramadol, that you have been given via [facility] as needed. Please call the ortho clinic on Wednesday for follow-up appointment and return to the ER as needed and as discussed - My Orders Last 24 Hours: My Active Orders 05/15/17 23:50 Ankle Min 3V Lt [CR] Stat 05/16/17 00:46 DME for Discharge [COMM] Stat - Assessment/Plan Last 24 Hours: My Active Orders 05/15/17 23:50 Ankle Min 3V Lt [CR] Stat 05/16/17 00:46 DME for Discharge [COMM] Stat
[2017-05-16 01:56] VITALS: BP 127/65
--- NOTE | 2017-05-17 14:23 | CR ---
EXAM DATE: 05/15/17 PATIENT'S AGE: 21 Patient: JANEE BLACKWELL Facility: [place], [place] Site . Site : 1995 Study: XRay Extremity Left [id number] 12:06:46 AM Ordering Physician: Dax Roy Final Report: INDICATION: Trauma TECHNIQUE: Three views left ankle COMPARISON: None FINDINGS: Bones: Alignment is normal. No fractures or bone lesions. Joint spaces: Unremarkable. Soft tissues: Lateral ankle edema. IMPRESSION: Lateral ankle edema. Dictated by Jesus Garner MD @ 05/16/2017 12:45:04 AM Dictated by: Jesus Garner MD @ 05/16/2017 00:45:11 (Electronic Signature) Report Signed by Proxy. SWATI
== END 2017-05-16 01:11 | disposition home or self-care (01) ==
LOC: MW.ED 23:34
DX: S93.402A Sprain of unspecified ligament of left ankle, initial encounter (principal); E11.9 Type 2 diabetes mellitus without complications; Z88.5 Allergy status to narcotic agent; W19.XXXA Unspecified fall, initial encounter
CPT/HCPCS: 73610; 96372; 99283; J1885; 99284